=== PATIENT | female | born 1995 | race Caucasian/White ===

== ENCOUNTER 2016-11-04 09:44 | Emergency (ER) | payer SELFPAY ==
[2016-11-04 10:02] VITALS: RESP 16
[2016-11-04] MEDS ORDERED: ACETAMINOPHEN TAB 325 MG TAB PO STA (10:35)
[2016-11-04] MEDS ORDERED: Acetaminophen-Codeine 300-30mg TAB PO STA (10:35)
[2016-11-04] MEDS ORDERED: IBUPROFEN 800 MG TAB PO STA (10:35)
[2016-11-04 10:57] LABS: Appearance,Urine Cloudy (Clear); Bacteria,Urine Rare /hpf; Bilirubin,Urine Negative (Negative); Glucose,Urine (UA) Negative (Negative); Ketones,Urine 2+ (Negative); Leukocyte Esterase,Urine Negative (Negative); Mucus,Urine Rare /hpf; Nitrite,Urine Negative (Negative); PH, Urine 7.5 (5.0-8.0); Particle Count 7623; Protein,Urine Trace (Negative); Specific Gravity,Urine 1.017 (1.001-1.035); Squamous Epithelial Cell,Urine 4 /hpf (0-4); UA Billing (MACRO vs. MICRO) MICRO; Urobilinogen,Urine <2.0 mg/dL (<2.0); WBC,Urine 1 /hpf (0-5)
--- NOTE | 2016-11-04 11:07 | ED ---
General Adult HPI - General Chief complaint: Headache Stated complaint: headache Time Seen by Provider: 11/04/16 10:12 Source: patient, RN notes reviewed, old records reviewed Mode of arrival: ambulatory Limitations: no limitations - History of Present Illness Initial comments: This is a 21-year-old female here for evaluation. The patient lives for evaluation of headache. Patient's migraine-type headache behind left eye, also feels warm and sick. Patient has not been feeling well lately and generalized body aches and pains. Patient has no specific medical history, patient does get occasional headaches. No modifying factors for headaches today. She did take Excedrin with no real help. Headaches are less night and has progressively worsened. Denies any trauma, no known sick contacts and no travel history. Patient did recently had GI bug with nausea vomiting and diarrhea. - Related Data Home Medications Medication Instructions Recorded Confirmed Ibuprofen [Motrin] 600 mg PO Q6HR PRN 11/04/16 11/04/16 Allergies Allergy/AdvReac Type Severity Reaction Status Date / Time No Known Allergies Allergy Verified 11/04/16 10:02 Review of Systems ROS Statement: Those systems with pertinent positive or pertinent negative responses have been documented in the HPI. ROS Other: All systems not noted in ROS Statement are negative. Past Medical History Past Medical History: No Reported History History of Any Multi-Drug Resistant Organisms: None Reported Past Surgical History: Orthopedic Surgery Additional Past Surgical History / Comment(s): knee Past Psychological History: No Psychological Hx Reported Smoking Status: Light tobacco smoker Past Alcohol Use History: Occasional Past Drug Use History: None Reported General Exam - General Exam Comments Initial Comments: NIH of 0 Limitations: no limitations General appearance: alert, in no apparent distress Head exam: Present: atraumatic, normocephalic, normal inspection Eye exam: Present: normal appearance, PERRL, EOMI. Absent: scleral icterus, conjunctival injection, periorbital swelling ENT exam: Present: normal exam, mucous membranes moist Neck exam: Present: normal inspection. Absent: tenderness, meningismus, lymphadenopathy Respiratory exam: Present: normal lung sounds bilaterally. Absent: respiratory distress, wheezes, rales, rhonchi, stridor Cardiovascular Exam: Present: regular rate, normal rhythm, normal heart sounds. Absent: systolic murmur, diastolic murmur, rubs, gallop, clicks GI/Abdominal exam: Present: soft, normal bowel sounds. Absent: distended, tenderness, guarding, rebound, rigid Extremities exam: Present: normal inspection, full ROM, normal capillary refill. Absent: tenderness, pedal edema, joint swelling, calf tenderness Back exam: Present: normal inspection Neurological exam: Present: alert, oriented X3, CN II-XII intact Psychiatric exam: Present: normal affect, normal mood Skin exam: Present: warm, dry, intact, normal color. Absent: rash Course Vital Signs 11/04/16 11/04/16 09:59 10:36 Temperature 99.7 F H 100.5 F H Pulse Rate 88 Respiratory 16 Rate Blood Pressure 121/64 O2 Sat by Pulse 98 Oximetry - Reevaluation(s) Reevaluation #1: 11/04/16 11:43 Patient's symptoms and headache resolved with fever control Medical Decision Making - Medical Decision Making 21 female in the ER for evaluation headache chest x-ray is negative for acute disease, flu test is negative, headache is resolved with fever control, patient does appear to viral syndrome, no signs or symptoms of meningismus, again headache is resolved, patient is in no acute distress - Lab Data Lab Results 11/04/16 11/04/16 11/04/16 Range/Units 10:40 10:40 10:40 Urine Color Yellow Urine Appearance Cloudy H (Clear) Urine pH 7.5 (5.0-8.0) Ur Specific [place] 1.017 (1.001-1.035) Urine Protein Trace H (Negative) Urine Glucose (UA) Negative (Negative) Urine Ketones 2+ H (Negative) Urine Blood Negative (Negative) Urine Nitrate Negative (Negative) Urine Bilirubin Negative (Negative) Urine Urobilinogen <2.0 (<2.0) mg/dL Ur Leukocyte Esterase Negative (Negative) Urine WBC 1 (0-5) /hpf Ur Squamous Epith Cells 4 (0-4) /hpf Urine Bacteria Rare H (None) /hpf Urine Mucus Rare H (None) /hpf Urine HCG, Qual Not Detected (Not Detectd) Influenza Type A RNA Not Detected (Not Detectd) Influenza Type B (PCR) Not Detected (Not Detectd) - Radiology Data Radiology results: report reviewed (Chest chest x-ray negative for acute disease ), image reviewed Disposition Clinical Impression: Viral syndrome, Migraine Disposition: HOME SELF-CARE Condition: Good Instructions: Acute Headache (ED), Viral Syndrome (ED) Referrals: Tabitha Miranda MD [Primary Care Provider] - 1-2 days
--- NOTE | 2016-11-04 11:32 | XR ---
EXAMINATION TYPE: XR chest 2V DATE OF EXAM: 11/04/2016 11:18 AM COMPARISON: None HISTORY: 21-year-old female with pain TECHNIQUE: PA and lateral views FINDINGS: The cardiomediastinal silhouette, aorta, and pulmonary vasculature are within normal limits. There is some strandy atelectasis in the lower lungs. No consolidation or pleural effusion. IMPRESSION: Some strandy atelectasis. No acute cardiopulmonary process.
[2016-11-04] MEDS ORDERED: DEXAMETHASONE SOD PHOSPHATE 10 MG/ML 1 ML VIAL IM STA (11:45)
[2016-11-04 12:41] VITALS: BP 119/54; PULSE 74; TEMP 99.5
== END 2016-11-04 12:40 | disposition home or self-care (01) ==
LOC: EC 09:44
DX: G43.909 Migraine, unspecified, not intractable, without status migrainosus (principal); B34.9 Viral infection, unspecified; J98.11 Atelectasis; F17.200 Nicotine dependence, unspecified, uncomplicated
CPT/HCPCS: 99284; 96372; 81001; 81025; 87086; 87502; 71020; J1100

== ENCOUNTER → 2017-11-02 | Outpatient (CLI) | payer BC | END | disposition home or self-care (01) | LOC: LABWHC1 09:15 | PROVIDERS: ATTEND Family Medicine | DX: Z30.9 Encounter for contraceptive management, unspecified (principal) | CPT/HCPCS: 36415; 84702 ==

== ENCOUNTER → 2019-11-15 | Outpatient (CLI) | payer BC | END | disposition home or self-care (01) | LOC: LABWHC1 07:03 | PROVIDERS: ATTEND Physician Assistant Medical | DX: D22.0 Melanocytic nevi of lip (principal); L20.89 Other atopic dermatitis; L83 Acanthosis nigricans | CPT/HCPCS: 36415; 82947 ==

== ENCOUNTER → 2024-05-04 | Outpatient (CLI) | payer OTHER ==
[2024-05-04 14:05] VITALS: BP 133/79; PULSE 80; RESP 16; TEMP 98.1
--- NOTE | 2024-05-04 15:11 | P.SLEEP ---
History of Present Illness DATE: 05/04/2024 CONSULTATION/NEW PATIENT EVALUATION HISTORY OF PRESENT ILLNESS/SLEEP-WAKE EVALUATION: 28-year-old lady had been e valuated in the sleep center for possible obstructive sleep apnea hypopnea syndrome. SLEEP SCHEDULE: Usually sleep schedule from 911 PM until 56 AM on weekdays and until 79 AM on weekend. FALLING ASLEEP: Sometimes patient has difficulties with falling asleep, has TV set in bedroom. DURING SLEEP: Patient has loud snoring and witnessed episodes of stop breathing during the sleep. Patient wakes up from sleep up to 3 times. No history of hypnogogical hallucinations, sleep paralysis, or cataplexy. DURING THE DAY/WAKE STATE: In the morning patient wake up tired, has claustrophobia. [place] sleepiness scale is 7. Patient does not take naps. PAST MEDICAL HISTORY: Obesity. PAST SURGICAL HISTORY: Right knee surgery. MEDICATIONS: Please see below. SOCIAL HISTORY: Please see below. FAMILY HISTORY: Hypertension, rheumatoid arthritis, asthma, sleep apnea, diabetes, during the sleep. REVIEW OF SYSTEMS: Snoring, awakenings from sleep. No fevers. No double vision. No recent chest pain. No shortness of breath. No abdominal pain. No bleeding episodes. No blood in urine. No seizure episodes. PHYSICAL EXAMINATION: GENERAL: A pleasant patient without any distress. VITAL SIGNS: Please see below, weight 343 pounds, BMI 57.0. HEENT: PERRLA, EOMI. Evaluation of oropharynx showed tongue protrudes midline, low position of soft palate Mallampati 4. NECK: Supple. No JVD. Thyroid is not palpable. 18 inches in circumference. LUNGS: Clear to percussion and to auscultation. Good air exchange. No wheezing or rhonchi. HEART: S1, S2 regular. No murmurs, gallops or rubs. ABDOMEN: Soft and nontender. Bowel sounds are present. No organomegaly appreciated. EXTREMITIES: No clubbing or cyanosis. X [employer] TECHNICIAN: Awake, alert, and oriented x3. Cranial nerves 2 to 7 intact. There is no fasciculation or atrophy noted. No focal deficits observed. ASSESSMENT: 1. Loud snoring, witnessed episodes of stop breathing during the sleep, extremely low position of soft palate Mallampati 4, wide neck 18 inches in circumference. Obstructive sleep apnea hypopnea syndrome. 2. Obesity, BMI 57.0. 3. Status post right knee surgery. 4. History of claustrophobia. PLAN: 1. Polysomnography for evaluation of patient's breathing during sleep. 2. Following plan after reading sleep study. 3. Preferable position during sleep on the side. 4. No driving if patient feels any sleepiness. Patient is aware of civil and criminal liability for unsafe driving. 5. Sleep hygiene with regular sleep time for at least 7.5-8 hours. 6. Watching and losing weight. Thank you very much for referring this patient for consultation. Sincerely, Kennedy Cárdenas MD, PhD, FAASM. Diplomat of [place] [employer], Sleep Medicine Board by [place] [employer] [place] [employer] of [facility] [place] cc: Makenna Medrano MD Past Medical History Past Medical History: No Reported History History of Any Multi-Drug Resistant Organisms: None Reported Past Surgical History: Orthopedic Surgery Additional Past Surgical History / Comment(s): R knee Past Anesthesia/Blood Transfusion Reactions: No Reported Reaction Past Psychological History: No Psychological Hx Reported Smoking Status: Former smoker, Vaper Past Alcohol Use History: Occasional Past Drug Use History: None Reported - Past Family History Father Family Medical History: Diabetes Mellitus, GERD/Reflux, Hyperlipidemia, Hypertension, Rheumatoid Arthritis (RA), Sleep Apnea/CPAP/BIPAP Additional Family Medical History / Comment(s): headaches, Narcolepsy, Restless legs, in Sleep Mother Family Medical History: Asthma, Pneumonia Additional Family Medical History / Comment(s): lung problems, bronchitis, anemia Medications and Allergies Home Medications Medication Instructions Recorded Confirmed Type Acetaminophen Tab [Tylenol Tab] 500 mg PO Q6H PRN #30 tablet 11/04/16 Rx Acetaminophen-Codeine 300-30mg 1 tab PO Q6H PRN #20 tablet 11/04/16 Rx [Tylenol #3] Ibuprofen [Motrin] 600 mg PO Q6HR PRN 11/04/16 11/04/16 History Ibuprofen [Motrin] 800 mg PO Q6HR PRN #30 tab 11/04/16 Rx Drospir/Eth Estra/Levomefol Ca 1 each PO DAILY 05/04/24 05/04/24 History [Tydemy 3-0.03-0.451 mg Tablet] Naproxen Sodium [Aleve] 220 mg PO DIRECTED PRN 05/04/24 05/04/24 History Phentermine HCl 37.5 mg PO DAILY 05/04/24 05/04/24 History Allergies Allergy/AdvReac Type Severity Reaction Status Date / Time No Known Allergies Allergy Verified 11/04/16 10:02 Physical Exam Vitals: Vital Signs Temp Pulse Resp BP Pulse Ox 05/04/24 14:04 98.1 F 80 16 133/79 99 Intake and Output 05/04/24 05/04/24 05/04/24 06:59 14:59 22:59 Other: Weight 155.582 kg Sleep Note - Sleep Data ESS Total: 7 - Sleep Note Sleep Note: Temperature: 98.1 F Pulse Rate: 80 Respiratory Rate: 16 Blood Pressure: 133/79 SpO2: 99 Height: 5 ft 5 in Weight: 155.582 kg BMI: Neck Circumference: 18
== END ==
LOC: 3 N SLEEP 13:40
PROVIDERS: ATTEND Internal Medicine
CPT/HCPCS: 99211